=== PATIENT | female | born 1935 | race African-American/Black ===

== ENCOUNTER 2020-08-04 17:16 | Inpatient (IN) | payer OTHER ==
[~2020-08-04] VITALS: Ht 162.6 cm; Wt 103.0 kg
--- NOTE | ~2020-08-04 | P ---
[facility] [place] [address] PROCEDURE REPORT Name: AARON MAURER Room #: 439-P [facility] IN ..#: [id number] Admission: 08/04/20 Attend Phys: Jackson Paredes MD Discharge: 08/12/20 Date of : 35 Report #: [id number] THIS REPORT FOR: cc: JAYCE - No family physician/PCP FAM - No family physician/PCP Carin Pittman DO ~ DOC #: [id number] Carin Pittman DO PREOPERATIVE DIAGNOSES: 1. Postmenopausal bleeding. 2. Thickened endometrium on ultrasound. POSTOPERATIVE DIAGNOSES: 1. Postmenopausal bleeding. 2. Thickened endometrium on ultrasound. PROCEDURE: Endometrial biopsy. DESCRIPTION OF PROCEDURE: Due to the patient's immobility and inability to be placed on a gynecological bed, it was decided that an endometrial biopsy would be performed in the patient's room. Therefore, the patient was propped up on a bedpan under her buttocks and placed in lithotomy position with her legs. A sterile speculum was placed in the patient's vagina and the cervix visualized. A biopsy Pipelle was placed through the cervix, gently advanced into the patient's uterus and an aspiration biopsy of the endometrium was performed x2 passes. This was sent to pathology in formalin. Once adequate amount of tissue was obtained, the Pipelle was removed from the patient's uterus and the speculum removed from the patient's vagina. The patient tolerated the procedure well and was taken off the bedpan. The specimen was then sent for pathology. Carin Pittman DO KCF/DAGMAR By: [id number] Carin Pittman DO /nt
--- NOTE | ~2020-08-04 | EMS ---
[place] [address] EMS Patient Care Report Name: AARON MAURER Room #: REG JOZEF Sexton#: [id number] Admission: 08/04/20 Attend Phys: Discharge: Date of : 35 Report #: [id number] THIS REPORT FOR: //name// Report Transmitted: 08/04/2020 18:45 EMS Care Summary [place], [place]/[facility] Incident [id number] @ 08/04/2020 16:47 Incident Location [id number] [place] [address] Patient AARON MAURER Female, 84 Years 1935 Patient Address [id number] [place] [address] Patient History Hypertension (HTN), Patient Allergies No known allergies, Patient Medications Aspirin, Amlodipine, Lisinopril, Hydralazine, Furosemide, Chief Complaint VAGINAL BLEEDING Disposition Transported No Lights/[place] Dispatch Reason Hemorrhage/Laceration Transported To [facility] Narrative UPON ARRIVAL PT SITTING UPRIGHT IN CHAIR CONSCIOUS AND ALERT. PT HAS BEEN HAVING LIGHT VAGINAL BLEEDING FOR 2 DAYS NOW THAT HASN'T STOPPED. PT HAS ALSO BEEN HAVING AN INCREASE IN PEDAL EDEMA FOR A WEEK. PT'S LEGS HAVEN'T BEEN WORKING RIGHT AND SHE'S UNABLE TO WALK LIKE SHE NORMALLY CAN. PT TAKEN TO [facility] [address] [place] [address] EMS Patient Care Report Name: AARON MAURER Room #: REG [facility]#: [id number] Admission: 08/04/20 Attend Phys: Discharge: Date of : 35 Report #: [id number] VIA STAIRCHAIR AND PIVOTS TO COT. PT TRANSPORTED. Initial Vitals @17:08P: 91,BP: 134/73,GCS: 15,CO: 5,SpO2: 96, @16:58P: 102,R: 16,BP: 170/65,Pain: 0/10,GCS: 15,SpO2: 96,Revised Trauma: 12, Assessments @16:52MENTAL:Person Oriented,Time Oriented,Event Oriented,Place Oriented,SKIN:HEENT:Head/Face: No Abnormalities,Neck/Airway: No Abnormalities,LUNG SOUNDS:General: Other,ABDOMEN:General: Other,PELVIS//GI:EXTREMITIES:Left Leg: Edema,Right Leg: Edema,Right Leg: Weakness,Left Leg: Weakness,Left Arm: No Abnormalities,Right Arm: No Abnormalities,PULSE:Radial: 2+ Normal,NEURO:No Abnormalities, Impression Vaginal Hemorrhage Procedures @16:52ALS AssessmentResponse: UnchangedSucceeded Timeline 16:45,Call Received 16:45,Dispatch Notified 16:47,Dispatched 16:49,En Route 16:50,On Scene 16:51,At Patient 16:52,ALS Assessment,Response: UnchangedSucceeded, 16:58,BP: 170/65 M,PULSE: 102,RR: 16 R,SPO2: 96 Ox,ETCO2: ,BG: ,PAIN: 0,GCS: 15, 16:59,Depart Scene 17:08,BP: 134/73 M,PULSE: 91,RR: R,SPO2: 96 Ox,ETCO2: ,BG: ,PAIN: ,GCS: 15, 17:13,At Destination 17:32,Call Closed Disclaimer v1.1 Copyright 2020 [employer] This EMS Care Summary contains data elements from the applicable legal record (which may be displayed differently). It is designed to provide pertinent information for the following purposes: continuity of care, clinical quality, and state data reporting. The complete legal record is available to ED staff and administrators of the receiving hospital in [employer] Patient Tracker. All data is provided "as is."
[~2020-08-04 17:16] MED LIST: ASPIRIN EC81 M1 PO; B12INJ IM; CARDURA1 MG; CARDURA4 MG PO; CARDURA8 MG PO; FOSINOPRIL SODI40 M1 PO; HYDRALAZINE 10M10 MG; HYDRALAZINE 2525 M1 PO; KEFLEX500 MG PO; LOPRESSOR25 PO; METOPROLOL SUCC25 M1; MONOPRIL20 MG; NORVASC 5 MG TAB5 MG PO; NORVASC10 MG PO
[2020-08-04 17:17] VITALS: BP 134/71
[2020-08-04 17:48] LABS: ABSOLUTE NEUTROPHILS 12.7 thou/uL (1.4-8.2); BASOPHILS 0.5 % (0.0-2.0); EOSINOPHILS 0.4 % (0.0-3.0); HEMATOCRIT 35.6 % (37.0-47.0); HEMOGLOBIN 11.3 gm/dL (12.0-15.0); LYMPHOCYTES 10.3 % (24.0-44.0); MCH 27.3 pg (26.0-34.0); MCHC 31.8 g/dL (28.0-37.0); MCV 85.9 fL (80.0-100.0); MONOCYTES 6.8 % (1.0-8.0); PLATELET COUNT 199 thou/uL (150-400); RBC 4.14 mil/uL (4.20-5.00); RDW 17.2 % (10.5-14.5); WBC 15.4 thou/uL (4.0-11.0)
[2020-08-04 18:09] LABS: ANION GAP 6 mmol/L (7-16); BUN 35 mg/dL (7-18); CALCIUM 9.9 mg/dL (8.5-10.1); CHLORIDE 101 mmol/L (98-107); CO2 30 mmol/L (21-32); CREATININE 1.7 mg/dL (0.6-1.0); GLUCOSE 121 mg/dL (74-106); POTASSIUM 3.9 mmol/L (3.5-5.1); SODIUM 137 mmol/L (136-145)
[2020-08-04 18:19] LABS: ALBUMIN 2.5 g/dL (3.4-5.0); DIRECT BILIRUBIN < 0.1 mg/dL (<0.1-0.2); SGOT 85 U/L (15-37); SGPT 22 U/L (14-59); TOTAL BILIRUBIN 0.7 mg/dL (0.2-1.0); TROPONIN-I <0.06 ng/mL (<0.06)
[2020-08-04 18:38] LABS: APTT 23.7 Seconds (24.5-32.8); INR 1.02; PROTIME 11.1 Seconds (10.5-12.1)
[2020-08-04 21:32] VITALS: BP 151/69
[2020-08-04 22:13] VITALS: BP 173/77
[2020-08-04 22:30] VITALS: BP 148/106
[2020-08-04 22:38] LABS: URINE BILIRUBIN NEGATIVE (Negative); URINE BLOOD TRACE (Negative); URINE CLARITY CLEAR; URINE COLOR YELLOW; URINE GLUCOSE-RANDOM* NEGATIVE (Negative); URINE KETONES NEGATIVE (Negative); URINE LEUKOCYTES-REFLEX NEGATIVE (Negative); URINE NITRITE-REFLEX NEGATIVE (Negative); URINE PROTEIN (DIPSTICK) NEGATIVE (Negative); URINE SPECIFIC GRAVITY 1.015 (1.005-1.035); URINE UROBILINOGEN 0.2 E.U./dl (0.2-1.0)
--- NOTE | 2020-08-05 03:50 | NUR ---
ADMISSION ASSESSMENT COMPLETED. PT COMES FROM HOME-LIVES WITH SON. SHE IS ALERT AND ORIENTED. AFEBRILE.INCONTINENT OF BLADDER. BLE WITH WORESENING LYMPHEDEMA-ELEVATED ON PILLOWS. PT DENIES PAIN.AFEBRILE.ON ROOM AIR-NO DISTRESS.
[2020-08-05 05:00] VITALS: BP 142/67
[2020-08-05 08:07] VITALS: BP 113/55
--- NOTE | 2020-08-05 09:41 | NUR ---
Assumed care of pt at 0700. Pt a&ox4. 1x assist with walker and gait-belt. Incontinent of bladder. RA. Heart echo ordered. Edema on BLE. Denies pain. Fall precautions in place. Will continue to monitor
--- NOTE | 2020-08-05 11:04 | 2DMMODE ---
[address] [address] 2 D/M-MODE ECHOCARDIOGRAM Name: AARON MAURER Room #: 439-P ADM IN M.R.#: [id number] Admission: 08/04/20 Attend Phys: Jackson Paredes MD Discharge: Date of : 35 Report #: [id number] THIS REPORT FOR: cc: FAM - No family physician/PCP FAM - No family physician/PCP Mario Odom MD ~ APPROVED REPORT Study performed: 08/05/2020 09:30:40 EXAM: Comprehensive 2D, Doppler, and color-flow Echocardiogram Patient Location: Bedside Room #: 439 Status: routine BSA: 2.06 HR: 80 bpm BP: 113/55 mmHg Rhythm: NSR Other Information Study Quality: Adequate Indications Congestive Heart Failure Hypertension/HDD 2D Dimensions IVC: 12.00 mm Volumes Left Atrial Volume (Systole) LA ESV Index: 29.00 mL/m2 Tricuspid Valve PA Pressure: 35.00 mmHg Left Ventricle The left ventricle is normal size. There is normal LV segmental wall motion. There is normal left ventricular wall thickness. The left ventricular systolic function is normal. The left ventricular ejection fraction is within the normal range. LVEF is 55-60%. Grade I - abnormal relaxation pattern. Right Ventricle [address] [address] 2 D/M-MODE ECHOCARDIOGRAM Name: AARON MAURER Room #: 439-P ADM IN M.R.#: [id number] Admission: 08/04/20 Attend Phys: Jackson Paredes MD Discharge: Date of : 35 Report #: [id number] The right ventricle is normal size. The right ventricular systolic function is normal. Atria The left atrium size is normal. The right atrium size is normal. Aortic Valve The aortic valve is normal in structure. No aortic regurgitation is present. There is no aortic valvular stenosis. Mitral Valve The mitral valve is normal in structure. There is no mitral valve regurgitation noted. No evidence of mitral valve stenosis. Tricuspid Valve The tricuspid valve is normal in structure. There is trace tricuspid regurgitation. Estimated PAP 35 mmHg. Pulmonic Valve The pulmonary valve is normal in structure. There is no pulmonic valvular regurgitation. Great Vessels The aortic root is normal in size. IVC is normal in size and collapses >50% with inspiration. Pericardium There is no pericardial effusion. <Conclusion> The left ventricle is normal size. There is normal left ventricular wall thickness. The left ventricular systolic function is normal. Grade I - abnormal relaxation pattern. The right ventricle is normal size. The left atrium size is normal. The aortic valve is normal in structure. There is no mitral valve regurgitation noted. There is trace tricuspid regurgitation. Estimated PAP 35 mmHg. <ELECTRONICALLY SIGNED> By: Mario Odom MD 08/05/20 1104 1104 1104 Mario Odom MD /SAMIA
--- NOTE | 2020-08-05 12:26 | EKG ---
[address] [address] ELECTROCARDIOGRAM REPORT Name: AARON MAURER Room #: 439- ADM IN M.R.#: [id number] Admission: 08/04/20 Attend Phys: Jackson Paredes MD Discharge: Date of : 35 Report #: [id number] [facility] Test Date: 2020-08-05 Test Time: 09:08:28 Pat Name: AARON MAURER Department: Room: 439 Gender: F [employer] Worker: MATHEUS : 1935 Requested By: Irene Neri Order Number: [id number] MD: Alonzo Vega Measurements Intervals Alpha Rate: 76 P: -18 PA: 171 QRS: -40 QRSD: 113 T: -58 QT: 441 QTc: 496 Interpretive Statements Sinus rhythm Atrial premature complexes Left ventricular hypertrophy No previous ECG available for comparison Electronically Signed On 08-05-2020 12:26:10 CDT by Alonzo Vega [email or web address] <ELECTRONICALLY SIGNED> By: Alonzo Vega MD, [facility] 08/05/20 1226 0908 7 Alonzo Vega MD, FACC /EPI
--- NOTE | 2020-08-05 14:05 | NUR ---
ASSESSMENT: CM REVIEWED CHART AND MET WITH PATIENT AT THE BEDSIDE. PT APPEARS TO BE ALERT AND ORIENTED X4. PT WAS ADMITTED DUE TO VAGINAL BLLEDING, ACUTE KIDNEY INJURY, BILATERAL LOWER EXTREMITY EDEMA. PT HAD TRANSVAGINAL ULTRASOUND THAT SHOWED POSSIBLE OVARIAN MASS. PT REPORTS LIVING IN A HOUSE WITH HER TWO ADULT SONS AND GRANDDAUGHTER. PT REPORTS THAT SHE HAS ABOUT 4 STEPS WITH HANDRAIL TO ENTER THE HOME AND NO STEPS ONCE INSIDE. PT REPORTS USING A WALKER FOR AMBULATION. PT STATES SHE HAS A WALK IN SHOWER WITH A GRAB BAR AND SHOWER CHAIR. PT REPORTS SHE HAS HAD [facility] IN THE PAST BUT HAS NOT BEEN TO A SNF. CM DISCUSSED ROLE AND LIKELY NEED FOR HH VS SNF. PT REPORTS SHE IS HOPING SHE CAN RETURN HOME AT DISCHARGE AND OPEN TO HH. PT IS CURRENTLY GETTING LYMPHEDEMA WRAPPING AND [facility] THAT SHE HAD IN THE PAST DOES NOT HAVE THIS SERVICE. PT HAS NO PREFERENCE OF HH AGENCY. CM SENT REFERRAL TO [facility] THEY PROVIDE LYMPHEDEMA WRAPPING FOR THEM TO REVIEW. CM WILL CONTINUE TO FOLLOW.
[2020-08-05 15:10] LABS: ALBUMIN 2.3 g/dL (3.4-5.0); CALCIUM 9.5 mg/dL (8.5-10.1); CREATININE 1.4 mg/dL (0.6-1.0); PHOSPHORUS 3.6 mg/dL (2.5-4.9); POTASSIUM 3.8 mmol/L (3.5-5.1)
[2020-08-05 18:01] VITALS: BP 127/80
[2020-08-05 21:05] VITALS: BP 121/71
[2020-08-06 06:06] LABS: CALCIUM 9.5 mg/dL (8.5-10.1); CREATININE 1.5 mg/dL (0.6-1.0); PHOSPHORUS 3.6 mg/dL (2.5-4.9); POTASSIUM 3.5 mmol/L (3.5-5.1)
--- NOTE | 2020-08-06 07:19 | NUR ---
PT DENIED PAIN THIS SHIFT.PT INCONT OF B&B.LINA CARE DONE WITH EACH INCONTINENCE.BLE LYMPHEDEMA WRAP INTACT.LEGS ELEVATED WHILE IN PT.PT REPOSITIONED PER HER EQUEST.L SIDED WKNESS NOTED.REPORT TO AM NURSE.
[2020-08-06 07:35] VITALS: BP 126/60
--- NOTE | 2020-08-06 10:31 | NUR ---
Assumed care of pt at 0700. Pt a&ox4. Denies pain. BLE wrapped by lymphedema nurse. Incontinent of bowel. Good appetite. To chair with physical therapy. Fall precautions in place. Will continue to monitor.
[2020-08-06 13:07] LABS: PROT/CREAT RATIO 0.5; URINE CREATININE-RANDOM* <13 mg/dL; URINE PROTEIN-RANDOM* < 6.0 mg/dL (<11.9); URINE SODIUM-RANDOM* 137 mmol/L
[2020-08-06 14:24] LABS: HEMATOCRIT 35.4 % (37.0-47.0); HEMOGLOBIN 11.2 gm/dL (12.0-15.0); MCH 27.3 pg (26.0-34.0); MCHC 31.8 g/dL (28.0-37.0); MCV 85.9 fL (80.0-100.0); RBC 4.12 mil/uL (4.20-5.00); RDW 17.1 % (10.5-14.5); WBC 15.3 thou/uL (4.0-11.0)
[2020-08-06 14:31] VITALS: BP 126/60
--- NOTE | 2020-08-06 14:33 | NUR ---
ON-GOING ASSESSMENT: CM REVIEWED CHART AND SPOKE WITH PATIENT AND CONTACTED HER NIECE DARRION WHO SHE LIVES WITH. OT SAW PATIENT AND RECOMMENDING HOME WITH HOME HELTH, PHYSICAL THERAPY IS ALSO SEEING PATIENT AND POSSIBLE HH VS SNF. PT PREFERS TO GO BACK HOME WITH HH. PT IS GETTING LYMPHEDEMA WRAPPING AND [facility], [place] CANNOT ACCEPT. CM SENT REFERRAL TO [facility] WHO REPORTS THEY CAN ACCEPT AND HAVE A LYMPHEDEMA NURSE. PATIENT IS TO HAVE CT BIOPSY OF LIVER MASSES. UNCLEAR TO WHEN PATIENT WILL BE ABLE TO DISCHARGE. IF FOR ANY REASON PATIENT CAN DISCHARGE HOME WITH HH OVER THE [facility] CAN ACCEPT AND WILL NEED TO BE CALLED AND HAVE DISCHARGE ORDERS FAXED TO THEM. [facility]:[phone] FAX:[phone]. CM WILL CONTINUE TO FOLLOW.
[2020-08-06 15:21] VITALS: BP 111/43
[2020-08-06 20:45] VITALS: BP 153/73
[2020-08-06 20:48] VITALS: BP 153/73
--- NOTE | 2020-08-07 01:49 | NUR ---
PT'S FAMILY HERE AT SHIFT CHANGE,INFO GIVEN ON NEW VISITING POLICY.NO C/O PAIN NOTED SO FAR.BLE EDEMA WITH LYMPHEDEMA WRAP IN PLACE.EXTERNAL FEMALE CATH IN PLACE WITH GOOD URINE OUTPUT.PT REPOSITIONED PER HER REQUEST.PT PROGRESSING SLOWLY TOWARDS DC GOALS.CALL LIGHT WITHIN REACH.
[2020-08-07 03:25] VITALS: BP 153/70
[2020-08-07 05:19] LABS: ALBUMIN 1.9 g/dL (3.4-5.0); CALCIUM 9.4 mg/dL (8.5-10.1); CREATININE 1.5 mg/dL (0.6-1.0); PHOSPHORUS 3.6 mg/dL (2.6-4.7); POTASSIUM 3.4 mmol/L (3.5-5.1)
[2020-08-07 08:56] VITALS: BP 132/59
[2020-08-07 15:36] VITALS: BP 128/52
--- NOTE | 2020-08-07 17:52 | NUR ---
PT ASSESSED AT START OF SHIFT. PT DENIES PAIN. TURNED Q2HRS. DR. BARLOW IN THIS AM TO DO ENDOMETRIAL BIOPSY- SPECIMEN SENT TO LAB. LEGS WRAPPED IN BARBIE WRAPS FOR EDEMA AND ELEVATED. SOME INCONTINENCE WELL EX CATH URINE.
[2020-08-07 19:09] VITALS: BP 137/69
--- NOTE | 2020-08-08 02:11 | NUR ---
ASSUMED PT CARE AT AROUND 1915 HRS. PT ALERT AND ORIENTED X 4.PLEASANT. DENIES PAIN.BLE WITH LYMPHEDEMA WRAPS IN PLACE.AFEBRILE.NO SIGNS OF VAGINAL BLEEDING. ON ROOM AIR-NO SIGNS OF DISTRESS. BLE ELEVATED FOR EDEMA. PT DENIES NAY NAUSEA OR VOMITNG.CALLS WITH NEEDS.
[2020-08-08 04:04] VITALS: BP 132/64
[2020-08-08 05:56] LABS: ALBUMIN 2.2 g/dL (3.4-5.0); CALCIUM 9.6 mg/dL (8.5-10.1); CREATININE 1.8 mg/dL (0.6-1.0); PHOSPHORUS 4.2 mg/dL (2.6-4.7); POTASSIUM 3.6 mmol/L (3.5-5.1)
[2020-08-08 09:21] VITALS: BP 122/54
--- NOTE | 2020-08-08 16:29 | NUR ---
PT ASSESSED AT START OF SHIFT. HAS NO PAIN. STATES SLEPT WELL. APPETITE GOOD. LYMPHEDEMA WRAPS INTACT. DIURESING BETTER FROM LASIX TODAY. TURNED Q2HRS.
[2020-08-08 18:03] VITALS: BP 135/57
[2020-08-08 19:50] VITALS: BP 132/56
--- NOTE | 2020-08-09 02:16 | NUR ---
PT'S FAMILY IN ROOM VISITING AT SHIFT CHANGE.PT DENIED PAIN SO FAR.PT HAD A SMALL BM,NO BLOOD NOTED.EXT FEMALE CATH IN PLACE WITH GOOD UOPBLE EDEMA LYMPHEDEMA WRAP IN PLACE.PT RESTING WELL ON HER BED AT THIS TIME.CALL LIGHT WITHIN REACH.
[2020-08-09 04:05] VITALS: BP 125/54
[2020-08-09 05:30] LABS: ALBUMIN 2.1 g/dL (3.4-5.0); CALCIUM 9.4 mg/dL (8.5-10.1); CREATININE 1.8 mg/dL (0.6-1.0); PHOSPHORUS 4.1 mg/dL (2.5-4.9); POTASSIUM 3.3 mmol/L (3.5-5.1)
[2020-08-09 07:44] VITALS: BP 128/59
[2020-08-09 11:06] LABS: CEA 8.1 ng/mL (0.0-4.7)
[2020-08-09 15:42] VITALS: BP 135/60
--- NOTE | 2020-08-09 17:18 | NUR ---
Patient alert and orinted x4, on room air, set up tray to eat, incontient on urine and bowl, Q2 turn, vital signs stable, and afbreile. Call light wtih in reach. Bed alarm on. Will continue to monitor.
[2020-08-09 19:50] VITALS: BP 135/55
[2020-08-09 23:54] VITALS: BP 135/55
[2020-08-10 04:29] VITALS: BP 135/58
--- NOTE | 2020-08-10 05:20 | NUR ---
PT AOX4. PT DENIES PAIN AND SOB WHILE ON ROOM AIR. PT HAS PRN APAP Q6HR AVAILABLE. PT TOLERATING PO INTAKE OF FLUIDS AND CLEAR LIQUID DIET WITHOUT ISSUE, NPO AT MIDNIGHT. PT WITH NAUSEA AND EMESIS X1. PT RECEIVING PRN IV ZOFRAN Q6HR. PT RESTING IN BED THROUGHOUT SHIFT, FREQUENT REPOSITIONING ENCOURAGED. PT REFUSING REPOSITIONING ASSISTANCE DUE TO REPORTS OF COMFORT. PT INCONTINENT OF BOWEL AND BLADDER. BLE WRAPS REMOVED DUE TO SOILAGE, NOT REPLACED DUE TO PT REQUEST. PT WITH +2 EDEMA TO BLE. SENSATION INTACT, CAPILLARY REFILL LESS THAN 3SEC IN ALL EXTREMITIES, PERIPHERAL PULSES PALPABLE IN ALL EXTREMITIES. PT ENCOURAGED TO NOTIFY STAFF FOR ALL NEEDS, CALL LIGHT WITHIN REACH, BED ALARM ON, BED LOCKED IN LOWEST POSITION, FREQUENT MONITORING WILL CONTINUE.
[2020-08-10 07:15] VITALS: BP 135/57
--- NOTE | 2020-08-10 09:17 | NUR ---
Assumed care of pt at 0700. Pt a&ox4. Denies pain. Incontinent of b&b. Lymphedema nurse is wrapping pt's bilateral LE. Colonoscopy scheduled for today. NPO since midnight. Call light within reach. Fall precautions in place. Will continue to monitor.
[2020-08-10 13:40] VITALS: BP 133/30
--- NOTE | 2020-08-10 14:42 | NUR ---
ON-GOING ASSESSMENT: CM REVIEWED CHART. PT HAS COLONOSCOPY TODAY AND LARGE M ASS/POLP WAS FOUND AND BIOPSY WAS OBTAINED. PER GI REC FOR ONCOLOGY CONSULT. CM WILL CONTINUE TO FOLLOW. CM UPDATED [facility] WHO CAN ACCEPT PATIENT FOR NEEDS AT DISCHARGE.
[2020-08-10 19:24] VITALS: BP 156/77
--- NOTE | 2020-08-10 23:36 | NUR ---
PT STAED THAT SHE DOESN'T WANT TO USE THE P[place] EXT CATH,REMOVED IMMEDIATELY AFTER SHIFT CHANGE.PT LATER CALLED OUT X3 REQUESTING FOR THE CATH TO BE REMOVED,PT WAS REMINDED EACH TIME THAT THE CATH WAS OUT.PT REQUESTED FOR TYLENOL FOR PAIN.PT INCONT PERICARE WITH EACH INCONT.BLE EDEMA,WITH LYMPH EDEMA WRAP IN PLACE.PT RESTING ON HER BED AT THIS TIME.CALL LIGHT WITHIN REACH.
[2020-08-11 00:50] VITALS: BP 141/60
[2020-08-11 08:16] VITALS: BP 120/49
--- NOTE | 2020-08-11 12:36 | NUR ---
ON-GOING ASSESSMENT: CM REVIEWED CHART AND SPOKE WITH ATTENDING. ONCOLOGY HAS BEEN CONSULTED AND AWAITING INPUT. AWAITING BIOPSY RESULTS WELL. [facility] SHE CONTINUES TO WORK WITH THERAPY. PT IS REQUESTING A NEW WALKER AT DISCHARGE AND REPORTS HERS IS OVER TEN YEARS OLD. PT HAS NO PREFERENCE OF DME PROVIDER. CM NOTIFIED LYNN AT [facility] WHO STATES SHE WILL DELIVER WALKER TO PATIENT PRIOR TO DISCHARGE. CM SPOKE WITH PATIENTS GRANDDAUGHTER DARRION TO UPDATE. CM WILL CONTINUE TO FOLLOW.
--- NOTE | 2020-08-11 12:42 | NUR ---
Assumed care of pt at 0700. Pt a&ox4. Denies pain. CT biopsy to be converted to US biopsy. Pt notified. NPO per doctor's order. Pt worked with occupational and physical therapy. Call light within reach. Fall precautions in place. Will continue to monitor.
[2020-08-11 17:29] VITALS: BP 141/57
[2020-08-11 19:19] VITALS: BP 135/58
--- NOTE | 2020-08-12 04:00 | NUR ---
NOC SHIFT. PT CALM AND PLEASANT. APPEARS TO HAVE SLEPT MOST OF THE NIGHT. DENIES PAIN. BLE ELEVATED.INCONTINENT OF BLADDER AND BOWEL.PERICARE PROVIDED. AFEBRILE. NO S/SX OF DISTRESS.
[2020-08-12 04:17] VITALS: BP 145/57
[2020-08-12 07:20] VITALS: BP 114/48
--- NOTE | 2020-08-12 11:01 | NUR ---
ASSUMED PT CARE THIS AM. PT IS ALERT & ORIENTED X4. NO C/O OF PAIN, NAUSEA AND VOMITING THIS AM. PT IS INCONTINENT AND ON ROOM AIR. PT HAS BILATERAL EDEMA ON LEG AND FEET +2 WARM AND DRY. PT WORKED WITH OCCUPATIONAL THERAPY THIS AM. PT TOLERATED DIET WELL THIS AM. PT ON THE BED, BED ON THE LOWEST POSITION, SIDE RAILS UP, CALL LIGHT WITHIN REACH. WILL CONTINUE TO MONITOR PT. FOLLOW POC.
[2020-08-12 12:07] VITALS: BP 126/60
--- NOTE | 2020-08-12 12:46 | NUR ---
ON-GOING ASSESSMENT: CM REVIEWED CHART AND SPOKE WITH PATIENT .PT HAS ORDERS TO DISCHARGE HOME TODAY WHERE SHE LIVES WITH HER SONS AND GRANDDAUGHTER WITH HOME HEALTH. [facility] HAS ACCEPTED PATIENT FOR HOME HEALTH SERVICES AND WERE NOTIFIED OF DISCHARGE. CM FAXED PAPERWORK TO [facility] AND NOTIFIED CRYSTAL IN INTAKE. SHE IS ALSO AWARE THAT PATIENTS PCP IS THROUGH [facility]. PTS GRANDDAUGHTER DARRION AWARE OF DISCHARGE AND REPORTING SOMEONE WILL COME JEWEL GRINDER PATIENT. PT WAS ALSO DELIVERED A WALKER TO HER ROOM FOR HOME BY [employer]. CM UPDATED PATIENTS GRANDDAUGHTER. CASE CLOSED.
--- NOTE | 2020-08-12 13:08 | PATH ---
[facility] [address] [place] [address] PATHOLOGY RPT PROCEDURE Name: TAWNYA MAURER Palma Room #: 439-P [facility] IN M.R.#: [id number] Admission: 08/04/20 Date of : 35 Discharge: Report #: [id number] Path Case #: [id number] [facility] Accession Number: [id number] . 01 Material submitted: . endometrium - ENDOMETRIAL BIOPSY . 01 Clinical history: . POSTMENOPAUSAL BLEEDING VAGINAL BLEEDING,PERIPHERAL EDEMA . 02 Diagnosis: Uterus, endometrium, biopsy: - Fragments of polypoid endometrium with simple and complex hyperplasia as well as breakdown. - Negative for atypia or malignancy. (IUV:grain blender; 08/11/2020) [facility] 08/11/2020 1714 Local . 02 Comment: Findings are suggestive of anovulatory cycles or unopposed estrogen exposure. Please correlate clinically. (IUV:grain blender; 08/11/2020) . 02 Electronically signed: . Kellee Dalton MD, Pathologist NPI- [id number] . 01 Gross description: . The specimen is received in formalin, labeled "Thony Tawnya, endometrial biopsy" and consists of a 1.2 cm aggregate of soft pink-rogel tissue and blood clot entirely submitted A1. ([facility]; 08/10/2020) PEDRO/PEDRO 08/11/2020 1705 Local . 02 Pathologist provided ICD-10: N85.01 . 02 CPT . 101427 Specimen Comment: A courtesy copy of this report has been sent to [phone] Specimen Comment: [phone], Specimen Comment: Report sent to ,DR BARLOW,DR FONSECA / DR QUARLES Performed at: [address] [id number] [facility] [address], [place], [place] [id number] [address] [address] PATHOLOGY RPT PROCEDURE Name: TAWNYA MAURER Room #: 439-P [facility] IN M.R.#: [id number] Admission: 08/04/20 Date of : 35 Discharge: Report #: [id number] Path Case #: [id number] MD Chapo Menendez MD Phone: [phone] Performed at: [address] [place], [place] [id number] MD Kellee Dalton MD Phone: [phone]
--- NOTE | 2020-08-12 15:07 | PATH ---
[facility] [address] [place] [address] PATHOLOGY RPT PROCEDURE Name: TAWNYA BHANDARI Palma Room #: 439-P [facility] IN M.R.#: [id number] Admission: 08/04/20 Date of : 35 Discharge: 08/12/20 Report #: [id number] Path Case #: [id number] [facility] Accession Number: [id number] . 01 Material submitted: . PART A: cecum - BIOPSY CECAL MASS PART B: colon - TRANSVERSE COLON POLYP BIOPSY. Modifiers: transverse PART C: sigmoid colon - SIGMOID COLON POLYP BIOPSY . 01 Clinical history: . GI FOLLOW UP COLONOSCOPY . 02 Diagnosis: A. Cecal mass, endoscopic biopsy: - TUBULAR ADENOMA WITH HIGH-GRADE DYSPLASIA. - Negative for invasive malignancy in the sampled tissue. . B. Polyp, transverse colon, endoscopic biopsy: - Tubular adenoma. - Negative for high-grade dysplasia or malignancy. - Stalk base showing unremarkable mucosa. . C. Polyp, sigmoid colon polyp, endoscopic biopsy: - Tubular adenoma. - Negative for high-grade dysplasia. . (IUV:saw man; 08/11/2020) [facility] 08/11/2020 1718 Local . 02 Comment: Dr. Jannie Rodriguez has seen public health representative slide of Part A of this case and concurs with my diagnosis. (IUV:saw man; 08/11/2020) . 02 Electronically signed: . Kellee Dalton MD, Pathologist NPI- [id number] . 03 Gross description: . A. The specimen is received in formalin, labeled "Tawnya Bhandari, biopsy cecal mass" received as multiple fragments of soft rogel tissue measuring up to 0.3 cm. Entirely submitted in A1. . B. The specimen is received in formalin, labeled "Tawnya Bhandari, transverse colon polyp" received as one polypoid fragment of soft rogel tissue measuring up to 0.4 cm. Entirely submitted in B1. [address] [address] PATHOLOGY RPT PROCEDURE Name: TAWNYA BHANDARI J Room #: 439-P [facility] IN M.R.#: [id number] Admission: 08/04/20 Date of : 35 Discharge: 08/12/20 Report #: [id number] Path Case #: [id number] . C. The specimen is received in formalin, labeled "Tawnya Bhandari, sigmoid colon polyp" received as one fragment of soft rogel tissue measuring up to 0.3 cm. Entirely submitted in C1. ([facility]; 08/10/2020) /[facility]BR 08/11/2020 1716 Local . 02 Pathologist provided ICD-10: D12.0, D12.3, D12.5 . 02 CPT . 604029, 238805, 072333 Specimen Comment: A courtesy copy of this report has been sent to [phone] Specimen Comment: 2008 Specimen Comment: Report sent to / DR QUARLES Specimen Comment: A duplicate report has been generated due to demographic updates. Performed at: [address], [place], [place] [id number] MD Chapo Menendez MD Phone: [phone] Performed at: [address] [id number] MD Kellee Dalton MD Phone: [phone] Performed at: [address], [place], [place] [id number] MD Mehdi Rodriguez MD Phone: [phone]
--- NOTE | 2020-08-16 15:05 | P ---
[facility] [place] [address] PROCEDURE REPORT Name: AARON MAURER Room #: 439-P [facility] IN M.R.#: [id number] Admission: 08/04/20 Attend Phys: Jackson Paredes MD Discharge: 08/12/20 Date of : 35 Report #: [id number] THIS REPORT FOR: cc: JAYCE - No family physician/PCP FAM - No family physician/PCP Leon Majano MD ~ DOC #: [id number] cc: MD Leon Srping MD DATE OF SERVICE: 08/10/2020 PROCEDURE PERFORMED: Colonoscopy with polypectomies and tattoo. HISTORY OF PRESENT ILLNESS: The patient is an 84-year-old female with recent history of possible GI bleed versus vaginal bleeding. She underwent initially a pelvic transvaginal ultrasound on 08/04/2020 showing nonvisualization of the uterus, which may be related to technical limitations. 3.3 x 2.6 cm complex septated cystic mass within the left pelvis, which is nonspecific, may represent a cystic ovarian mass. She underwent abdominal ultrasound showing hepatomegaly with multiple liver masses, the largest being 16 cm in size. Recommended CT followup. This was done on 08/05. A CT scan of the abdomen and pelvis was performed on 08/06 showing extensive hypodense enhancing masses throughout the right and left lobe of the liver, may represent primary hepatic malignancy versus metastatic disease, extensive diverticulosis noted with mild colonic bowel wall thickening involving the rectosigmoid colon, which may be a lack of complete distention. Multiple hypodense uterine masses, likely representing uterine fibroids, small amount of fluid within the endometrial canal approximately 2 cm right adnexal cyst, gallstones also noted. The patient's hemoglobin was 11.2. Her CEA level was 8.1, which is elevated. CA 19-9 level was normal less than 2. Her CA-125 is elevated at 57.0. She states her last colonoscopy was at least 10 years ago at [facility] and reportedly negative. No family history of colon cancer. Plan is for colonoscopy today. DESCRIPTION OF PROCEDURE: The risks and benefits of the procedure were explained to the patient, those risks including but not limited to bleeding, perforation and the risk of sedation. She understood these risks and gave informed consent. Sedation was given using propofol per anesthesia. Next, a digital rectal exam was initially performed, which was normal. Next, using a standard Olympus colonoscope, the scope was placed in the patient's anus and advanced under direct vision to the cecum. The overall prep was good. A large polyp/mass was noted involving the entire cecum. This appears to be involving part of the ileocecal valve. I was not able to advance the scope into the terminal ileum. Multiple biopsies were obtained and the edges were tattooed today. The scope was then slowly withdrawn. Multiple diverticula were noted throughout the colon including the ascending, transverse and descending as well [address] [address] PROCEDURE REPORT Name: AARON MAURER Room #: 439-P DIS IN M.R.#: [id number] Admission: 08/04/20 Attend Phys: Jackson Paredes MD Discharge: 08/12/20 Date of : 35 Report #: [id number] as sigmoid colon, most of which were in the sigmoid colon. In the transverse colon, a 6 mm partially pedunculated polyp was noted, this was removed by snare cautery. In the sigmoid colon, a 5 mm sessile polyp was also noted, was also removed by snare cautery. Again, multiple diverticula noted in the sigmoid colon. No evidence of inflammation. There was some mild narrowing. No masses were seen in this area. The rectal mucosa was normal. On retroflexion, no abnormalities were noted. The scope was then withdrawn and the procedure terminated. The patient tolerated the procedure well. IMPRESSION: 1. Large polyp with possible malignant mass involving most of the cecum also involving part of the ileocecal valve. If this is an adenocarcinoma, this could represent an etiology of the patient's liver masses, edges were tattooed today. 2. Two small colonic polyps, removed. 3. Pandiverticulosis with most diverticula noted in the sigmoid colon. RECOMMENDATIONS: 1. Await biopsy results. 2. Would consult Oncology for further evaluation. May need to consider right hemicolectomy, also consider liver biopsy. She does have an ovarian mass and an elevated both CEA and CA-125 level. Thank you for allowing me to participate in her care. Leon Majano MD [facility] <ELECTRONICALLY SIGNED> By: Leon Majano MD 08/16/20 1505 1200 2131 Leon Majano MD /nt
--- NOTE | 2020-08-16 15:07 | PATH ---
[facility] [address] [place] [address] PATHOLOGY RPT PROCEDURE Name: TAWNYA MAURER Palma Room #: 439-P DIS IN M.R.#: [id number] Admission: 08/04/20 Date of : 35 Discharge: 08/12/20 Report #: [id number] Path Case #: [id number] [facility] Accession Number: [id number] . 01 Material submitted: . liver - FOCAL RIGHT LIVER MASS. Modifiers: right . 01 Clinical history: . VAGINAL BLEEDING,WORSENING LE EDEMA RELEVANT PATH# [id number] . 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 SEE COMMENT. (IUV:haley; 08/13/2020) QMS 08/13/2020 1226 Local . 02 Comment: Examination shows a gland forming malignant lesion involving the sampled hepatic cores. Scattered markedly pleomorphic nuclei are identified. Multiple properly controlled immunohistochemical stains are performed on block A1. The tumor shows strong membranous reactivity with CK7 as well as AE1/AE3. Rare to scant cells (less than 5%) show membranous reactivity with vimentin. The nonreactive immunohistochemical stains included CK20, CDX-2, PAX-8, ER, WT1 (no nuclear reactivity present) as well as TTF-1. The nonreactive immunohistochemical stains argue and suggest against a metastatic colonic adenocarcinoma, metastatic renal cell carcinoma as well as a metastatic Mullerian (gynecologic) primary. . Based on the immunohistochemical stains the adenocarcinoma may represent a hepato-biliary, pancreatobiliary, or a cholangiocarcinoma. Subsequent to the original round of immunohistochemical stains, CK19 and monoclonal CEA are added. The results of these will be reported in an addendum to follow. . Dr. Chapo Menendez has seen a automobile rental representative H and E slide (A1-1) of this case and concurs with my interpretation. Findings of this case are communicated to Dr. Jackson Paredes at approximately 12:15 p.m. on 08/13/2020. (IUV:haley; 08/13/2020) . 02 Addendum: . This addendum is issued subsequent to reviewing properly-controlled monoclonal CEA and CK19 immunohistochemical stains performed on block A1. CK19 shows strong membranous reactivity present within the malignant tumor. Monoclonal CEA shows glandular canalicular reactivity pattern within scant tumor cells. These findings support the originally rendered interpretation of possible "hepato-biliary" or "pancreato-biliary" primary [address] [address] PATHOLOGY RPT PROCEDURE Name: TAWNYA MAURER Palma Room #: 439-P DIS IN M.R.#: [id number] Admission: 08/04/20 Date of : 35 Discharge: 06/03/21 Report #: [id number] Path Case #: [id number] for this malignancy. Please correlate clinically. . (IUV:mml; 08/16/2020) . . [facility] performed by [facility], [address], [place] [address]. Technical services performed by [facility] at [address] [place] [address], [address], [place] [address]. [facility]/08/16/2020 Addendum Electronically Signed by Kellee Dalton MD, Pathologist . 02 Electronically signed: . Kellee Dalton MD, Pathologist NPI- [id number] . 01 Gross description: . Received in formalin labeled "Thony, Tawnya and focal liver biopsy". Received are 3 liver core biopsies ranging from 2.0-2.4 cm in length and 0.1 cm in diameter. The specimen is entirely submitted in cassette A1.([facility]; 08/11/2020) [facility] 08/11/2020 2008 Local . 02 Pathologist provided ICD-10: C22.9 . 02 CPT . 642513, D26283, L00609 Specimen Comment: A courtesy copy of this report has been sent to [phone] Specimen Comment: Report sent to / DR FONSECA Specimen Comment: A duplicate report has been generated due to demographic updates. Performed at: [address], [place], [place] [id number] MD Chapo Menendez MD Phone: [phone] Performed at: 02 [facility] [address], [place], [place] [id number] MD Kellee Dalton MD Phone: [phone]
== END 2020-08-12 13:15 | disposition home health service (06) | DRG 744 ==
LOC: ER 17:16 → 4S 20:16 → EROBS 20:16 → 4S 22:15
PROVIDERS: Emergency Medicine; Internal Medicine Nephrology; Obstetrics & Gynecology; ADMIT Hospitalist; ATTEND Hospitalist
DX: N93.9 Abnormal uterine and vaginal bleeding, unspecified (principal); N17.9 Acute kidney failure, unspecified; K62.5 Hemorrhage of anus and rectum; N83.9 Noninflammatory disorder of ovary, fallopian tube and broad ligament, unspecified; E78.00 Pure hypercholesterolemia, unspecified; K57.30 Diverticulosis of large intestine without perforation or abscess without bleeding; E66.01 Morbid (severe) obesity due to excess calories; E78.5 Hyperlipidemia, unspecified; F17.210 Nicotine dependence, cigarettes, uncomplicated; R53.81 Other malaise; R63.4 Abnormal weight loss; I12.9 Hypertensive chronic kidney disease with stage 1 through stage 4 chronic kidney disease, or unspecified chronic kidney disease; N18.32 Chronic kidney disease, stage 3b; K59.00 Constipation, unspecified; R59.1 Generalized enlarged lymph nodes; E53.8 Deficiency of other specified B group vitamins; K63.5 Polyp of colon; Z68.38 Body mass index [BMI] 38.0-38.9, adult; Z86.73 Personal history of transient ischemic attack (TIA), and cerebral infarction without residual deficits; Z82.49 Family history of ischemic heart disease and other diseases of the circulatory system; Z71.6 Tobacco abuse counseling; Z79.82 Long term (current) use of aspirin; Z79.899 Other long term (current) drug therapy
CPT/HCPCS: 10195; 62110; 62900; 70005